=== PATIENT | female | born 1995 | race Caucasian/White ===

== ENCOUNTER → 2016-11-10 | Outpatient (CLI) | payer BC | END | disposition home or self-care (01) | LOC: LABWHC1 16:40 | PROVIDERS: ATTEND Orthopaedic Surgery | DX: E55.9 Vitamin D deficiency, unspecified (principal) | CPT/HCPCS: 36415; 82306 ==

== ENCOUNTER → 2017-08-17 | Outpatient (CLI) | payer BC | END | disposition home or self-care (01) | LOC: LABWHC1 08:27 | PROVIDERS: ATTEND Internal Medicine Clinical Cardiac Electrophysiology | DX: E78.5 Hyperlipidemia, unspecified (principal) | CPT/HCPCS: 36415; 80061; 84443 ==

== ENCOUNTER 2019-03-15 07:47 | Emergency (ER) | payer BC ==
[2019-03-15 07:52] VITALS: TEMP 97.2
[2019-03-15] MEDS ORDERED: SODIUM CHLORIDE 0.9% 1,000 ML IV STA (08:01)
--- NOTE | 2019-03-15 08:05 | ED ---
Dizziness HPI - General Chief Complaint: Dizziness Stated Complaint: Lightheaded Time Seen by Provider: 03/15/19 07:55 Source: patient, RN notes reviewed Mode of arrival: ambulatory Limitations: no limitations - History of Present Illness Initial Comments: This is a 24-year-old female with a history of palpitations she was in the 15-year-old age range who presents today with complaints of sudden onset of lightheadedness and dizziness while she was upstairs working today. She states she bent over and felt lightheaded and dizzy felt like her heart was racing. Also some slight shortness of breath with it. She states she feels somewhat better now but still has some dizziness with eye movement. She did eat breakfast this morning she states her last menstrual period was 2 weeks ago she has no new medications no recent fevers chills nausea vomiting sweats no other symptoms no other modifying factors at this time. He states that at the age of 15 she did have a fairly extensive workup that apparently proved to be negative for any findings. MD Complaint: dizziness, lightheadedness - Related Data Previous Rx's Medication Instructions Recorded Meclizine [Antivert] 25 mg PO TID #15 tab 03/15/19 Allergies Allergy/AdvReac Type Severity Reaction Status Date / Time loratadine [From Claritin-D] AdvReac Unknown Verified 03/15/19 07:52 pseudoephedrine AdvReac Unknown Verified 03/15/19 07:52 [From Claritin-D] Review of Systems ROS Statement: Those systems with pertinent positive or pertinent negative responses have been documented in the HPI. ROS Other: All systems not noted in ROS Statement are negative. Past Medical History Past Medical History: Syncope History of Any Multi-Drug Resistant Organisms: None Reported Past Surgical History: Adenoidectomy, Tonsillectomy Past Psychological History: Anxiety Smoking Status: Never smoker Past Alcohol Use History: None Reported Past Drug Use History: None Reported General Exam - General Exam Comments Initial Comments: This is a well-developed well-nourished awake alert oriented 3 female Limitations: no limitations General appearance: alert, in no apparent distress Head exam: Present: atraumatic, normocephalic, normal inspection Eye exam: Present: normal appearance, PERRL, EOMI. Absent: scleral icterus, conjunctival injection, periorbital swelling ENT exam: Present: normal exam, mucous membranes moist Neck exam: Present: normal inspection, full ROM, other (No stridor JVD or bruits). Absent: tenderness, meningismus, lymphadenopathy Respiratory exam: Present: normal lung sounds bilaterally. Absent: respiratory distress, wheezes, rales, rhonchi, stridor Cardiovascular Exam: Present: regular rate, normal rhythm, normal heart sounds. Absent: systolic murmur, diastolic murmur, rubs, gallop, clicks GI/Abdominal exam: Present: soft, normal bowel sounds. Absent: distended, tenderness, guarding, rebound, rigid Extremities exam: Present: normal inspection, full ROM, normal capillary refill. Absent: tenderness, pedal edema, joint swelling, calf tenderness Back exam: Present: normal inspection Neurological exam: Present: alert, oriented X3, CN II-XII intact Psychiatric exam: Present: normal affect, normal mood Skin exam: Present: warm, dry, intact, normal color. Absent: rash Course Vital Signs 03/15/19 03/15/19 03/15/19 07:48 08:30 09:00 Temperature 97.2 F L Pulse Rate 84 79 71 Respiratory 19 18 20 Rate Blood Pressure 134/90 133/90 124/84 O2 Sat by Pulse 100 97 96 Oximetry 03/15/19 09:30 Temperature Pulse Rate 72 Respiratory 14 Rate Blood Pressure 126/87 O2 Sat by Pulse 100 Oximetry EKG Findings - EKG Results: EKG: interpreted by TALHA, sinus rhythm (Sinus rhythm with a PVC noted rate was 85. Interval 142 QRS duration 80 QT/QTC 368/437) Medical Decision Making - Medical Decision Making Patient states she still feeling somewhat lightheaded though is improved the. Patient will be discharged the presentation is consistent with benign positional vertigo. Patient be discharged with instruction follow-up when necessary she'll be given prescription for meclizine. We did discuss the PVC on EKG. 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 - Lab Data Result diagrams: 03/15/19 08:04 03/15/19 08:04 Lab Results 03/15/19 03/15/19 03/15/19 Range/Units 08:04 08:04 08:04 WBC 5.6 (3.8-10.6) k/uL RBC 4.77 (3.80-5.40) m/uL Hgb 14.2 (11.4-16.0) gm/dL Hct 41.8 (34.0-46.0) % MCV 87.7 (80.0-100.0) fL MCH 29.8 (25.0-35.0) pg MCHC 34.0 (31.0-37.0) g/dL RDW 11.8 (11.5-15.5) % Plt Count 293 (150-450) k/uL Neutrophils % 49 % Lymphocytes % 38 % Monocytes % 7 % Eosinophils % 2 % Basophils % 1 % Neutrophils # 2.8 (1.3-7.7) k/uL Lymphocytes # 2.1 (1.0-4.8) k/uL Monocytes # 0.4 (0-1.0) k/uL Eosinophils # 0.1 (0-0.7) k/uL Basophils # 0.1 (0-0.2) k/uL Sodium 138 (137-145) mmol/L Potassium 4.0 (3.5-5.1) mmol/L Chloride 105 (98-107) mmol/L Carbon Dioxide 22 (22-30) mmol/L Anion Gap 11 mmol/L BUN 12 (7-17) mg/dL Creatinine 0.69 (0.52-1.04) mg/dL Est GFR (CKD-EPI)AfAm >90 (>60 ml/min/1.73 sqM) Est GFR (CKD-EPI)NonAf >90 (>60 ml/min/1.73 sqM) Glucose 93 (74-99) mg/dL Calcium 9.9 (8.4-10.2) mg/dL Magnesium 1.9 (1.6-2.3) mg/dL Total Bilirubin 0.6 (0.2-1.3) mg/dL AST 23 (14-36) U/L ALT 25 (9-52) U/L Alkaline Phosphatase 58 (38-126) U/L Troponin I <0.012 (0.000-0.034) ng/mL Total Protein 7.6 (6.3-8.2) g/dL Albumin 4.7 (3.5-5.0) g/dL TSH 2.220 (0.465-4.680) mIU/L Urine Color Urine Appearance (Clear) Urine pH (5.0-8.0) Ur Specific Adah (1.001-1.035) Urine Protein (Negative) Urine Glucose (UA) (Negative) Urine Ketones (Negative) Urine Blood (Negative) Urine Nitrite (Negative) Urine Bilirubin (Negative) Urine Urobilinogen (<2.0) mg/dL Ur Leukocyte Esterase (Negative) Urine HCG, Qual (Not Detectd) 03/15/19 03/15/19 Range/Units 08:08 08:08 WBC (3.8-10.6) k/uL RBC (3.80-5.40) m/uL Hgb (11.4-16.0) gm/dL Hct (34.0-46.0) % MCV (80.0-100.0) fL MCH (25.0-35.0) pg MCHC (31.0-37.0) g/dL RDW (11.5-15.5) % Plt Count (150-450) k/uL Neutrophils % % Lymphocytes % % Monocytes % % Eosinophils % % Basophils % % Neutrophils # (1.3-7.7) k/uL Lymphocytes # (1.0-4.8) k/uL Monocytes # (0-1.0) k/uL Eosinophils # (0-0.7) k/uL Basophils # (0-0.2) k/uL Sodium (137-145) mmol/L Potassium (3.5-5.1) mmol/L Chloride (98-107) mmol/L Carbon Dioxide (22-30) mmol/L Anion Gap mmol/L BUN (7-17) mg/dL Creatinine (0.52-1.04) mg/dL Est GFR (CKD-EPI)AfAm (>60 ml/min/1.73 sqM) Est GFR (CKD-EPI)NonAf (>60 ml/min/1.73 sqM) Glucose (74-99) mg/dL Calcium (8.4-10.2) mg/dL Magnesium (1.6-2.3) mg/dL Total Bilirubin (0.2-1.3) mg/dL AST (14-36) U/L ALT (9-52) U/L Alkaline Phosphatase (38-126) U/L Troponin I (0.000-0.034) ng/mL Total Protein (6.3-8.2) g/dL Albumin (3.5-5.0) g/dL TSH (0.465-4.680) mIU/L Urine Color Colorless Urine Appearance Clear (Clear) Urine pH 7.0 (5.0-8.0) Ur Specific Adah 1.000 L (1.001-1.035) Urine Protein Negative (Negative) Urine Glucose (UA) Negative (Negative) Urine Ketones Negative (Negative) Urine Blood Negative (Negative) Urine Nitrite Negative (Negative) Urine Bilirubin Negative (Negative) Urine Urobilinogen <2.0 (<2.0) mg/dL Ur Leukocyte Esterase Negative (Negative) Urine HCG, Qual Not Detected (Not Detectd) Disposition Clinical Impression: Benign paroxysmal positional vertigo Disposition: HOME SELF-CARE Condition: Good Instructions (If sedation given, give patient instructions): Dizziness (ED) Additional Instructions: Meclizine prescription sent to your preferred [facility] pharmacy Prescriptions: Meclizine [Antivert] 25 mg PO TID #15 tab Is patient prescribed a controlled substance at d/c from ED?: No Referrals: Tho Pelaez MD [Primary Care Provider] - 1-2 days
[2019-03-15] MEDS ORDERED: MECLIZINE 12.5 MG TAB PO STA (08:09)
[2019-03-15 08:20] LABS: Basophils # (A) 0.1 k/uL (0-0.2); Basophils % (A) 1 %; Eosinophils # (A) 0.1 k/uL (0-0.7); Eosinophils % (A) 2 %; HCT 41.8 % (34.0-46.0); HGB 14.2 gm/dL (11.4-16.0); Lymphocytes # (A) 2.1 k/uL (1.0-4.8); Lymphocytes % (A) 38 %; MCH 29.8 pg (25.0-35.0); MCV 87.7 fL (80.0-100.0); Mean Platelet Volume 7.3; Monocytes # (A) 0.4 k/uL (0-1.0); Monocytes % (A) 7 %; Neutrophils # (A) 2.8 k/uL (1.3-7.7); Neutrophils % (A) 49 %; Platelet Count 293 k/uL (150-450); RBC 4.77 m/uL (3.80-5.40); RDW 11.8 % (11.5-15.5); WBC 5.6 k/uL (3.8-10.6)
[2019-03-15 08:39] LABS: ALT 25 U/L (9-52); AST 23 U/L (14-36); African American GFR (CKD) >90 (>60 ml/min/1.73 sqM); Albumin 4.7 g/dL (3.5-5.0); Alkaline Phosphatase 58 U/L (38-126); Anion Gap 11 mmol/L; Blood Urea Nitrogen 12 mg/dL (7-17); Calcium 9.9 mg/dL (8.4-10.2); Carbon Dioxide 22 mmol/L (22-30); Chloride 105 mmol/L (98-107); Glucose 93 mg/dL (74-99); Magnesium 1.9 mg/dL (1.6-2.3); Non-African American GFR(CKD) >90 (>60 ml/min/1.73 sqM); Sodium 138 mmol/L (137-145); Total Bilirubin 0.6 mg/dL (0.2-1.3); Total Protein 7.6 g/dL (6.3-8.2)
[2019-03-15 08:40] LABS: Appearance,Urine Clear (Clear); Bilirubin,Urine Negative (Negative); Blood,Urine Negative (Negative); Color,Urine Colorless; Glucose,Urine (UA) Negative (Negative); Ketones,Urine Negative (Negative); Leukocyte Esterase,Urine Negative (Negative); Nitrite,Urine Negative (Negative); Protein,Urine Negative (Negative); Urobilinogen,Urine <2.0 mg/dL (<2.0)
[2019-03-15 09:38] VITALS: BP 126/87; PULSE 72; RESP 14
== END 2019-03-15 10:14 | disposition home or self-care (01) ==
LOC: EC 07:47
DX: H81.10 Benign paroxysmal vertigo, unspecified ear (principal); I49.3 Ventricular premature depolarization; R00.2 Palpitations; R06.02 Shortness of breath; Z88.8 Allergy status to other drugs, medicaments and biological substances
CPT/HCPCS: 36415; 80053; 81003; 81025; 83735; 84443; 84484; 85025; 93005; 96360; 96361; 99284

== ENCOUNTER → 2019-10-15 | Outpatient (CLI) | payer BC ==
--- NOTE | 2019-10-15 15:52 | XR ---
EXAMINATION TYPE: XR chest 2V DATE OF EXAM: 10/15/2019 COMPARISON: 1995 INDICATION: Dyspnea, history of Covid TECHNIQUE: Frontal and lateral views of the chest are obtained. FINDINGS: The heart size is normal. The pulmonary vasculature is normal. The lungs are clear. IMPRESSION: 1. No acute pulmonary process. 2. No suspicious peripheral infiltrates.
== END | disposition home or self-care (01) ==
LOC: LABWHC1 13:33
PROVIDERS: ATTEND Internal Medicine
DX: R06.00 Dyspnea, unspecified (principal); U07.1 COVID-19
CPT/HCPCS: 36415; 71046; 86769

== ENCOUNTER → 2021-02-04 | Outpatient (CLI) | payer BC ==
[2021-02-04 12:24] LABS: HCT 39.9 % (34.0-46.0); HGB 13.1 gm/dL (11.4-16.0); MCH 29.2 pg (25.0-35.0); MCHC 32.8 g/dL (31.0-37.0); MCV 89.1 fL (80.0-100.0); Mean Platelet Volume 7.2; Platelet Count 283 k/uL (150-450); RBC 4.48 m/uL (3.80-5.40); RDW 12.2 % (11.5-15.5); WBC 6.3 k/uL (3.8-10.6)
[2021-02-04 12:49] LABS: African American GFR (CKD) >90 (>60 ml/min/1.73 sqM); Anion Gap 7 mmol/L; Blood Urea Nitrogen 10 mg/dL (7-17); Carbon Dioxide 25 mmol/L (22-30); Chloride 104 mmol/L (98-107); Non-African American GFR(CKD) >90 (>60 ml/min/1.73 sqM); Sodium 136 mmol/L (137-145)
== END | disposition home or self-care (01) ==
LOC: LABPAT 11:40
PROVIDERS: ATTEND Internal Medicine Clinical Cardiac Electrophysiology
DX: Z01.812 Encounter for preprocedural laboratory examination (principal); I47.1 Supraventricular tachycardia
CPT/HCPCS: 80051; 82565; 84520; 85027

== ENCOUNTER 2021-02-16 07:59 | Day surgery (SDC) | payer BC ==
[2021-02-15 12:22] VITALS: BMI 36.5
[~2021-02-16 07:59] MED LIST: HYDROmorphone 0.5 MG/0.5 ML SYRINGE IVP PRN; LACTATED RINGERS 1,000 ML IV SCH; MIDAZOLAM 2 MG/2 ML VIAL IV PRN; SODIUM CHLORIDE 0.9% 1,000 ML IV SCH
[2021-02-16] MEDS ORDERED: SODIUM CHLORIDE 0.9% 1,000 ML IV ONE (08:12)
[2021-02-16 08:37] VITALS: RESP 16; TEMP 98.3
[2021-02-16] MEDS ORDERED: LIDOCAINE 1% INJ 10MG/ML (20 ML MDV) ONE ×2 (09:05→10:45)
[2021-02-16] MEDS ORDERED: fentaNYL (PF) 50 MCG/ML 2 ML AMP ONE (09:22)
[2021-02-16] MEDS ORDERED: MIDAZOLAM 2 MG/2 ML VIAL ONE (09:22)
[2021-02-16] MEDS ORDERED: ISOPROTERENOL 250 MCG/1.25 ML SYR IV ONE (09:22)
[2021-02-16] MEDS ORDERED: HEPARIN SODIUM,PORCINE 5,000 UNIT/ML 1 ML VIAL ONE (09:22)
[2021-02-16] MEDS ORDERED: ONDANSETRON 4 MG/2 ML VIAL ONE (09:22)
--- NOTE | 2021-02-16 09:48 | P.HPCAR ---
History of Present Illness This is Dr. Jeffers dictating an H/P on this patient The patient was interviewed and examined IMPRESSION / ASSESSMENT: Recurrent palpitations of increasing frequency over the last 3 months Documented narrow complex supraventricular tachycardia Recurrent nonsustained irregular atrial tachycardia Occasional PVCs PLAN: Diagnostic EP study and radiofrequency ablation as indicated Risks and benefits discussed HPI Patient complains of recurrent palpitations which are increasing frequency over the last 3 months She had an episode lasting for about 30 minutes a few days back She is intolerant of AV marla blocking drugs because the slow her heart rate down She does not have any fever chills cough expectoration recently any GI symptoms ROS: No fever chills or rigors, no cough, phlegm or expectoration, no nausea, vomiting or diarrhea, no hematuria, dysuria, no musculoskeletal complaints, no strokes or seizures, no skin lesions. EXAMINATION: 131/85 mmHg pulse rate in the 80s afebrile 98.3F Normal heart sounds normal S1 normal S2 Breath sounds are clear no rhonchi no crackles Extremities are warm no edema No JVD REVIEW OF LABS, ECG & MEDICAL DATA Patient is not on any cardiac medications for the last 48 hours She takes Pepcid and Lexapro NO KNOWN DRUG ALLERGIES Physical Exam Vitals: Vital Signs Temp Pulse Resp BP Pulse Ox 02/16/21 08:35 98.3 F 88 16 131/85 98 Intake and Output 02/15/21 02/16/21 02/16/21 22:59 06:59 14:59 Intake Total 20 Balance 20 Intake: IV 20 Other: Weight 111.3 kg Past Medical History Past Medical History: Syncope Additional Past Medical History / Comment(s): SEE DR JEFFERS'S H&P History of Any Multi-Drug Resistant Organisms: None Reported Past Surgical History: Adenoidectomy, Tonsillectomy Additional Past Surgical History / Comment(s): SEE DR JEFFERS'S H&P Additional Past Anesthesia/Blood Transfusion Reaction / Comment(s): NO PREV ANESTH Past Psychological History: Anxiety Smoking Status: Never smoker Past Alcohol Use History: None Reported Past Drug Use History: None Reported - Past Family History Father Family Medical History: AFIB, Hypertension Mother Family Medical History: Hyperlipidemia, Hypertension Physical Examination Vital Signs Temp Pulse Resp BP Pulse Ox 02/16/21 08:35 98.3 F 88 16 131/85 98 Intake and Output 02/15/21 02/16/21 02/16/21 22:59 06:59 14:59 Intake Total 20 Balance 20 Intake: IV 20 Other: Weight 111.3 kg Results Current Medications Generic Name Dose Route Start Last Admin Trade Name Sushil PRN Reason Stop Dose Admin Hydromorphone HCl 0.5 mg 02/16/21 07:00 Hydromorphone 0.5 Mg/0.5 Ml Syringe IVP 02/16/21 23:00 Q5M PRN Phase I - Pain Control Sodium Chloride 1,000 mls @ 20 mls/hr 02/16/21 05:37 Saline 0.9% IV 03/18/21 05:38 .Q24H JACIEL Lactated Ringer's 1,000 mls @ 20 mls/hr 02/16/21 05:37 Lactated Ringers IV 03/18/21 05:38 .Q24H JACIEL Midazolam HCl 2 mg 02/16/21 05:37 Midazolam 2 Mg/2 Ml Vial IV 02/16/21 23:00 ONCE PRN Pre-Op Anxiety Intake and Output 02/15/21 02/16/21 02/16/21 22:59 06:59 14:59 Intake Total 20 Balance 20 Intake: IV 20 Other: Weight 111.3 kg Patient Weight 02/17/21 06:59 Weight 111.3 kg
[2021-02-16] MEDS ORDERED: LIDOCAINE 1% INJ 10MG/ML (20 ML MDV) SQ ONE ×2 (09:53→10:46)
[2021-02-16] MEDS ORDERED: HEPARIN SODIUM (1,000 UNIT/ML) 1,000 UNIT in SODIUM CHLORIDE 0.9% 1,000 ML IRRIGATION ONE (10:47)
--- NOTE | 2021-02-16 12:19 | P.EPPROC ---
- EP Procedure Note Electrophysiology Procedure Note: Diagnosis Recurrent palpitations/documented supraventricular tachycardia with RVR, symptomatic Proposed Procedure Diagnostic EP study/possible and frequency ablation Final diagnosis High right atrial tachycardia, lateral aspect of the right atrium Phrenic nerve in close proximity to the earliest site of activation and a broad area around it Evidence of antegrade slow pathway conduction without induction of AV marla reentrant tachycardia Details of the procedure Patient was brought to the EP lab in a fasting state Written informed consent was obtained prior to the procedure Venous sheaths were placed in the right left femoral veins and a diagnostic EP study was performed on and off Isuprel Sinus cycle length 912 ms, MD interval 159 ms, QRS 99 ms and QT interval 431 ms AH 95 ms and HV interval 35 ms VA Wenckebach block 420 ms Parahisian pacing revealed a marla response with the VA time of 224 ms and an TALBOT time of 168 ms Pacing from the high right atrium right ventricle and coronary sinus performed Sinus node recovery times at 600, 504 100 ms were 1188 ms, 04/10/2001 milliseconds and 871 ms Jump in the AH interval noted and evidence of slow pathway conduction noted on and off Isuprel No evidence for AV marla reentrant tachycardia The retrograde conduction was midline and decremental SVT was induced on Isuprel with atrial extra stimulation as well as spontaneously on higher doses of Isuprel intermittently SVT was consistent with a high right atrial tachycardia with a high to sequence and dissociation with ventricular pacing 3-D electro-anatomic mapping of the right atrium was performed The atrial tachycardia was localized to the right atrial free wall, lateral aspect Early fractionated signals with excellent unipolar electrograms noted in a broad area of about 6.8 mm Phrenic nerve stimulation performed Phrenic nerve could be stimulated at the earliest site as well as all around this zone of 6.8 mm of early activation Therefore radiofrequency ablation was deferred at this point in favor of medical treatment, given the risk to the phrenic nerve This was explained to the patient and the family All sheaths were removed and hemostasis achieved with Vascade closure device Patient tolerated the procedure well without any acute complications other than mild nausea on Isuprel Final procedure Diagnostic EP study with induction of a right atrial tachycardia, free wall CS pacing and recording Drug stimulation with Isuprel 3-D electro-anatomic mapping Radiofrequency ablation deferred at this point due to proximity of the right phrenic nerve
[2021-02-16] MEDS ORDERED: ACETAMINOPHEN TAB 325 MG TAB PO PRN (12:23)
[2021-02-16] MEDS ORDERED: FLECAINIDE 50 MG TAB PO SCH ×2 (12:25→21:00)
[2021-02-16] MEDS ORDERED: FLECAINIDE 50 MG TAB PO STA (12:29)
[2021-02-16] MEDS ORDERED: ACETAMINOPHEN IV (For NPO) 1,000 MG in EMPTY BAG 1 BAG IVPB ONE (13:00)
[2021-02-16 16:52] VITALS: BP 114/72; PULSE 68
== END 2021-02-16 17:05 | disposition home or self-care (01) ==
LOC: CATHEP 07:59 → 6NMEDSUR 12:47 → CATHEP 17:05
PROVIDERS: ATTEND Internal Medicine Clinical Cardiac Electrophysiology
DX: R00.2 Palpitations (principal); I47.1 Supraventricular tachycardia; Z82.49 Family history of ischemic heart disease and other diseases of the circulatory system; Z83.49 Family history of other endocrine, nutritional and metabolic diseases; Z20.822 Contact with and (suspected) exposure to COVID-19
CPT/HCPCS: 93623; 93621; 93620; 93613; 81025; 87635; C1894; C1769 ×2; C1760 ×2; C1730 ×3; C1732; J2250; J1644 ×2; J2405; J2001; J3010